=== PATIENT | female | born 1995 | race Caucasian/White ===

== ENCOUNTER 2022-07-20 07:38 | Day surgery (SDC) | payer MEDICAID ==
[~2022-07-20] VITALS: Ht 167.6 cm; Wt 109.5 kg
[2022-07-20] MEDS ORDERED: SIMETHICONE 40 MG/0.6 ML ML ONE (07:57)
[2022-07-20] MEDS ORDERED: MIDAZOLAM HCL 5 MG/5 ML VIAL ONE (07:57)
[2022-07-20 08:11] LABS: HCG,QUAL RESULT NEGATIVE (NEGATIVE)
[2022-07-20] MEDS: MEPERIDINE 100 MG INJ. 100 MG/ML VIAL ONE ×3 (10:22→10:38)
[2022-07-20] MEDS ORDERED: DIPHENHYDRAMINE INJ 50 MG/ML VIAL ONE (10:22)
[2022-07-20] MEDS: MIDAZOLAM HCL 5 MG/5 ML VIAL ONE ×3 (10:26→10:30)
[2022-07-20 11:53] VITALS: BP_SYST 131
== END 2022-07-20 12:10 | disposition home or self-care (01) ==
LOC: SDS 07:38 → SMU 07:39 → SDS 12:10
PROVIDERS: ATTEND Internal Medicine Gastroenterology
DX: E66.01 Morbid (severe) obesity due to excess calories (principal); K29.50 Unspecified chronic gastritis without bleeding; F17.210 Nicotine dependence, cigarettes, uncomplicated; Z20.822 Contact with and (suspected) exposure to COVID-19; Z68.39 Body mass index [BMI] 39.0-39.9, adult; Z79.899 Other long term (current) drug therapy
CPT/HCPCS: 36415 ×2; 43239; 87426; 84703; 88305; 88312; 88313; 99152; U0003; G0378; J1200; J2250; J2175